=== PATIENT | female | born 1930 | race Caucasian/White ===

== ENCOUNTER 2017-10-31 08:45 | Inpatient (IN) | payer OTHER ==
[~2017-10-31] VITALS: Ht 149.9 cm; Wt 56.7 kg
[~2017-10-31 08:45] MED LIST: APRESOLINE 10MG10 MG PO; AVAPRO300 MG PO; LIPITOR20 MG PO; NORVASC10 MG PO; RISPERDAL1 MG PO; TOPROL XL200 MG PO; ZANTAC300 MG PO
[2017-10-31] MEDS ORDERED: KEPPRA750 MG (09:06)
== END 2017-11-11 08:09 | disposition expired | DRG 193 ==
LOC: ER 08:45 → MEDI 14:36 → EDBD 14:36 → MEDI 11-06 11:11
PROC: 4A033R1 Measurement of Arterial Saturation, Peripheral, Percutaneous Approach (ICD-10-PCS; principal; 2017-10-31)
PROC: 3E0F7GC Introduction of Other Therapeutic Substance into Respiratory Tract, Via Natural or Artificial Opening (ICD-10-PCS; 2017-10-31)
PROC: BW24ZZZ Computerized Tomography (CT Scan) of Chest and Abdomen (ICD-10-PCS; 2017-10-31)
PROC: 02HV33Z Insertion of Infusion Device into Superior Vena Cava, Percutaneous Approach (ICD-10-PCS; 2017-11-01)
PROC: 5A09557 Assistance with Respiratory Ventilation, Greater than 96 Consecutive Hours, Continuous Positive Airway Pressure (ICD-10-PCS; 2017-11-06)
PROC: 4A12X4Z Monitoring of Cardiac Electrical Activity, External Approach (ICD-10-PCS; 2017-11-06)
DX: J18.9 Pneumonia, unspecified organism (principal); J96.01 Acute respiratory failure with hypoxia; A41.9 Sepsis, unspecified organism; R65.20 Severe sepsis without septic shock; N17.8 Other acute kidney failure; B37.0 Candidal stomatitis; E87.0 Hyperosmolality and hypernatremia; J90 Pleural effusion, not elsewhere classified; I10 Essential (primary) hypertension; E78.4 Other hyperlipidemia; G30.8 Other Alzheimer's disease; F02.80 Dementia in other diseases classified elsewhere, unspecified severity, without behavioral disturbance, psychotic disturbance, mood disturbance, and anxiety; Z66 Do not resuscitate; Z74.01 Bed confinement status; B96.1 Klebsiella pneumoniae [K. pneumoniae] as the cause of diseases classified elsewhere; B95.61 Methicillin susceptible Staphylococcus aureus infection as the cause of diseases classified elsewhere; I48.0 Paroxysmal atrial fibrillation; E11.65 Type 2 diabetes mellitus with hyperglycemia; Z93.1 Gastrostomy status; J69.0 Pneumonitis due to inhalation of food and vomit